=== PATIENT | male | born 1950 | race Caucasian/White ===

== ENCOUNTER 2020-10-28 13:34 | Emergency (ER) | payer MEDICARE, BC ==
[2020-10-28] MEDS ORDERED: Sodium Chloride 0.9% 10 ML Syringe FLUSH PRN (14:05)
--- NOTE | 2020-10-28 14:15 | EDM.PDOC ---
ED HPI GENERAL MEDICAL PROBLEM - General Chief Complaint: General Stated Complaint: FLU SYMPTOMS Time Seen by Provider: 10/28/20 13:45 Source of Information: Reports: Patient History Limitations: Reports: No Limitations - History of Present Illness INITIAL COMMENTS - FREE TEXT/NARRATIVE: Pt. presents to ER with complaints of fatigue, chills, weakness, cough, and mild chest congestion since last . Pt. states that he was exposed to an individual who was positive for influenza, and feels as though this is the problem. He was running a fever this weekend and states he refused to come to ER at that time. He complains of mild respirophasic chest discomfort. Denies any sore throat. No rhinorrhea. No nausea, vomiting, or diarrhea. Denies any bloody stools. Denies any skin rashes or eruptions. Denies any productive cough. No hemoptysis. Denies any dysuria, hesitancy, or urgency. Primary complaint today is of severe weakness. He states that he has been having a hard time getting up to the bathroom and required transport into the ER from the ambulance garage with a wheelchair. Family states he was very difficult to get into a vehicle to bring to ER. Pt. denies any recent travel outside of the [facility]. No recent year work. No recent hunting trips. He states that he has been spending most of his time at home. He does go out for coffee. Onset Date: 10/23/20 Location: Reports: Chest, Generalized Generalized Pain Score (Numeric/FACES): 2 - Related Data Allergies Allergy/AdvReac Type Severity Reaction Status Date / Time Dsoyvof-Bby-Bzm Reductase Allergy Other Verified 10/28/20 13:52 Inhibitor Home Meds: Home Meds Empagliflozin [Jardiance] 25 mg PO DAILY 10/28/20 [History] Metoprolol Succinate [Toprol XL 100mg] 150 mg PO DAILY 10/28/20 [History] hydroCHLOROthiazide [Hydrochlorothiazide] 12.5 mg PO DAILY 10/28/20 [History] lisinopriL [Lisinopril] 20 mg PO DAILY 10/28/20 [History] metFORMIN [Glucophage] 850 mg PO BIDMEALS 10/28/20 [History] Past Medical History Cardiovascular History: Reports: Hypertension Gastrointestinal History: Reports: PUD Endocrine/Metabolic History: Reports: Diabetes, Type II - Past Surgical History Other Male Surgeries/Procedures: nephrolithiasis Social & Family History - Tobacco Use Tobacco Use Status *Q: Never Tobacco User ED ROS GENERAL - Review of Systems Review Of Systems: See Below Constitutional: Reports: Chills, Malaise, Weakness, Fatigue, Decreased Appetite. Denies: Night Sweats, Diaphoresis, Weight Gain HEENT: Reports: No Symptoms Respiratory: Reports: Shortness of Breath, Pleuritic Chest Pain, Cough Cardiovascular: Reports: No Symptoms Endocrine: Reports: No Symptoms GI/Abdominal: Reports: No Symptoms : Reports: No Symptoms Musculoskeletal: Reports: No Symptoms Skin: Reports: No Symptoms Neurological: Reports: No Symptoms Psychiatric: Reports: No Symptoms Hematologic/Lymphatic: Reports: No Symptoms Immunologic: Reports: No Symptoms ED EXAM, GENERAL - Physical Exam Exam: See Below Exam Limited By: No Limitations General Appearance: Alert, WD/WN, No Apparent Distress Eye Exam: Bilateral Eye: EOMI, Normal Fundi, Normal Inspection, PERRL Throat/Mouth: Normal Inspection, Normal Lips, Normal Teeth, Normal Oropharynx, No Airway Compromise Head: Atraumatic, Normocephalic Neck: Normal Inspection, Supple, Non-Tender Respiratory/Chest: No Respiratory Distress, Normal Breath Sounds, No Accessory Muscle Use, Chest Non-Tender, Decreased Breath Sounds (Decreased in bases, R>L) Cardiovascular: Normal Peripheral Pulses, Regular Rate, Rhythm, No JVD, No Murmur Peripheral Pulses: 4+: Radial (L) GI/Abdominal: Soft, Non-Tender, No Distention, No Mass (Male) Exam: Deferred Rectal (Males) Exam: Deferred Back Exam: Normal Inspection, Full Range of Motion Extremities: Normal Inspection, Normal Range of Motion, Non-Tender, No Pedal Edema, Normal Capillary Refill Neurological: Alert, Oriented, CN II-XII Intact, Normal Cognition, Normal Gait, Normal Reflexes, No Motor/Sensory Deficits Psychiatric: Normal Affect, Normal Mood Skin Exam: Warm, Dry, Intact, Pallor Lymphatic: No Adenopathy #1 Interpretation Rhythm: NSR (frequent PVCs) Course - Vital Signs Last Recorded V/S: Last Vital Signs Temp 36.2 C 10/28/20 13:34 Pulse 94 10/28/20 14:45 Resp 31 H 10/28/20 14:45 BP 111/58 L 10/28/20 14:45 Pulse Ox 94 L 10/28/20 14:45 - Orders/Labs/Meds Orders: Active Orders 24 hr Category Date Time Status EKG Documentation Completion [RC] STAT Care 10/28/20 14:05 Active PE Chest [Ang Chest] [CT] Stat Exams 10/28/20 14:59 Ordered COMPREHENSIVE METABOLIC PN,CMP [CHEM] Stat Lab 10/28/20 14:18 Received CRP [C-REACTIVE PROTEIN] [CHEM] Stat Lab 10/28/20 14:18 Received CULTURE BLOOD [BC] Stat Lab 10/28/20 14:18 Received CULTURE BLOOD [BC] Stat Lab 10/28/20 14:22 Received MAGNESIUM [CHEM] Stat Lab 10/28/20 14:18 Received TROPONIN I [CHEM] Stat Lab 10/28/20 14:18 Received UA RFX LIANE AND CULT IF INDIC [URIN] Stat Lab 10/28/20 14:07 Ordered Piperacillin/Tazobactam [Zosyn] 4.5 gm Med 10/28/20 14:44 Ordered Sodium Chloride 0.9% [Normal Saline] 100 ml IV STAT Sodium Chloride 0.9% [Saline Flush] Med 10/28/20 14:05 Active 10 ml FLUSH ASDIRECTED PRN Blood Culture x2 Reflex Set [OM.PC] Stat Oth 10/28/20 14:06 Ordered Peripheral IV Insertion Adult [OM.PC] Routine Oth 10/28/20 14:06 Ordered Medication Orders Piperacillin Sod/Tazobactam (Sod 4.5 gm/ Sodium Chloride) 100 mls @ 200 mls/hr IV STAT ONE Stop: 10/28/20 15:13 Sodium Chloride (Saline Flush) 10 ml FLUSH ASDIRECTED PRN PRN Reason: Keep Vein Open Labs: Laboratory Tests 10/28/20 10/28/20 10/28/20 Range/Units 13:43 14:18 14:18 WBC 22.1 H* (4.0-10.0) x10^3/uL RBC 4.92 (4.5-6.0) x10^6/uL Hgb 15.4 (14.0-18.0) g/dL Hct 43.7 (40.0-52.0) % MCV 88.8 (78.0-93.0) fL MCH 31.3 (26.0-32.0) pg MCHC 35.2 (32.0-36.0) g/dL RDW Coeff of Poonam 14.3 (10.0-15.0) % Plt Count 255 (130-400) x10^3/uL Add Manual Diff Yes Neutrophils % (Manual) 77 (50-80) % Band Neutrophils % 11 H (0-6) % Lymphocytes % (Manual) 2 L (25-50) % Monocytes % (Manual) 8 (2-11) % Metamyelocytes % 2 H (0) % Vacuolated Monocytes Rare Platelet Estimate Adequate Polychromasia Rare PT 11.5 (9.5-12.3) SEC INR 1.1 L (2.0-3.5) APTT (25.6-32.8) SEC D-Dimer, Quantitative 2.78 H (<=0.58) mg/LFEU Sodium (136-145) mmol/L Potassium (3.5-5.1) mmol/L Chloride (98-107) mmol/L Carbon Dioxide (21-32) mmol/L Anion Gap (10-20) mmol/L BUN (7-18) mg/dL Creatinine (0.70-1.30) mg/dL Est Cr Clr Drug Dosing Estimated GFR (MDRD) Glucose (74-106) mg/dL Lactic Acid (0.4-2.0) mmol/L Calcium (8.5-10.1) mg/dL Corrected Calcium (8.5-10.1) mg/dL Magnesium (1.8-2.4) mg/dL Total Bilirubin (0.2-1.0) mg/dL AST (15-37) U/L ALT (16-63) U/L Alkaline Phosphatase (46-116) U/L Troponin I (<=0.056) ng/mL Total Protein (6.4-8.2) g/dL Albumin (3.4-5.0) g/dL Globulin Albumin/Globulin Ratio SARS CoV-2 RNA Rapid VAIBHAV Negative (NEGATIVE) 10/28/20 10/28/20 10/28/20 Range/Units 14:18 14:18 14:22 WBC (4.0-10.0) x10^3/uL RBC (4.5-6.0) x10^6/uL Hgb (14.0-18.0) g/dL Hct (40.0-52.0) % MCV (78.0-93.0) fL MCH (26.0-32.0) pg MCHC (32.0-36.0) g/dL RDW Coeff of Poonam (10.0-15.0) % Plt Count (130-400) x10^3/uL Add Manual Diff Neutrophils % (Manual) (50-80) % Band Neutrophils % (0-6) % Lymphocytes % (Manual) (25-50) % Monocytes % (Manual) (2-11) % Metamyelocytes % (0) % Vacuolated Monocytes Platelet Estimate Polychromasia PT (9.5-12.3) SEC INR (2.0-3.5) APTT 32.4 (25.6-32.8) SEC D-Dimer, Quantitative (<=0.58) mg/LFEU Sodium 130 L (136-145) mmol/L Potassium 3.1 L (3.5-5.1) mmol/L Chloride 89 L (98-107) mmol/L Carbon Dioxide 11 L (21-32) mmol/L Anion Gap 33.1 H (10-20) mmol/L BUN 42 H (7-18) mg/dL Creatinine 1.4 H (0.70-1.30) mg/dL Est Cr Clr Drug Dosing TNP Estimated GFR (MDRD) 50 Glucose 273 H (74-106) mg/dL Lactic Acid 3.2 H* (0.4-2.0) mmol/L Calcium 9.4 (8.5-10.1) mg/dL Corrected Calcium 11.00 H (8.5-10.1) mg/dL Magnesium 2.5 H (1.8-2.4) mg/dL Total Bilirubin 1.5 H (0.2-1.0) mg/dL AST 30 (15-37) U/L ALT 45 (16-63) U/L Alkaline Phosphatase 98 (46-116) U/L Troponin I < 0.017 (<=0.056) ng/mL Total Protein 7.4 (6.4-8.2) g/dL Albumin 2.0 L (3.4-5.0) g/dL Globulin 5.4 Albumin/Globulin Ratio 0.37 SARS CoV-2 RNA Rapid VAIBHAV (NEGATIVE) Meds: Medications Generic Name Dose Route Start Last Admin Trade Name Freq PRN Reason Stop Dose Admin Piperacillin Sod/Tazobactam 100 mls @ 200 mls/hr 10/28/20 14:44 Sod 4.5 gm/ Sodium Chloride IV 10/28/20 15:13 STAT ONE Sodium Chloride 10 ml 10/28/20 14:05 Saline Flush FLUSH ASDIRECTED PRN Keep Vein Open Discontinued Medications Generic Name Dose Route Start Last Admin Trade Name Freq PRN Reason Stop Dose Admin Sodium Chloride 1,000 mls @ 999 mls/hr 10/28/20 14:07 10/28/20 14:19 Normal Saline IV 10/28/20 15:07 999 mls/hr ONETIME ONE Administration Iopamidol 100 ml 10/28/20 14:51 10/28/20 15:07 Isovue-300 (61%) IVPUSH 10/28/20 14:52 100 ml ONETIME ONE Administration - Radiology Interpretation Free Text/Narrative:: Chest x-ray reveals R lung base opacity, non-specific, favor dense infiltrates. CTA of chest was obtained due to opacification on chest x-ray, elevated white count, and elevated d dimer. Large R hilar infiltrate/opacification noted of unknown etiology. No pulmonary embolism noted. - Re-Assessments/Exams Free Text/Narrative Re-Assessment/Exam: IV access established. Pt. was started on NS and was given Zosyn 4.5gm and Vancomycin 1.25gm IV. He was given a total of approx. 2.5 liters of NS since admission. Will start NS with 40KCL at 125ml/hr. Pt. blood glucose was noted to be 273mg/dl. His last blood glucose was 320mg/dl in clinic. His A1C 3 months ago was 11.6. Departure - Departure Time of Disposition: 17:26 Disposition: DC/Tfer to Acute Hospital 02 Clinical Impression: Sepsis, Pneumonia - Discharge Information Forms: ED Department Discharge Sepsis Event Note (ED) - Evaluation Sepsis Screening Result: No Definite Risk - Focused Exam Vital Signs: Vital Signs Temp Pulse Resp BP Pulse Ox 10/28/20 14:45 94 31 H 111/58 L 94 L 10/28/20 13:34 36.2 C 117 H 24 H 107/58 L 92 L - Problem List Review Problem List Initiated/Reviewed/Updated: Yes - My Orders Last 24 Hours: My Active Orders 10/28/20 14:05 EKG Documentation Completion [RC] STAT Sodium Chloride 0.9% [Saline Flush] 10 ml FLUSH ASDIRECTED PRN 10/28/20 14:06 Blood Culture x2 Reflex Set [OM.PC] Stat Peripheral IV Insertion Adult [OM.PC] Routine 10/28/20 14:07 UA RFX LIANE AND CULT IF INDIC [URIN] Stat 10/28/20 14:18 COMPREHENSIVE METABOLIC PN,CMP [CHEM] Stat CRP [C-REACTIVE PROTEIN] [CHEM] Stat CULTURE BLOOD [BC] Stat MAGNESIUM [CHEM] Stat TROPONIN I [CHEM] Stat 10/28/20 14:22 CULTURE BLOOD [BC] Stat 10/28/20 14:44 Piperacillin/Tazobactam [Zosyn] 4.5 gm Sodium Chloride 0.9% [Normal Saline] 100 ml IV STAT 10/28/20 14:59 PE Chest [Ang Chest] [CT] Stat - Assessment/Plan Last 24 Hours: My Active Orders 10/28/20 14:05 EKG Documentation Completion [RC] STAT Sodium Chloride 0.9% [Saline Flush] 10 ml FLUSH ASDIRECTED PRN 10/28/20 14:06 Blood Culture x2 Reflex Set [OM.PC] Stat Peripheral IV Insertion Adult [OM.PC] Routine 10/28/20 14:07 UA RFX LIANE AND CULT IF INDIC [URIN] Stat 10/28/20 14:18 COMPREHENSIVE METABOLIC PN,CMP [CHEM] Stat CRP [C-REACTIVE PROTEIN] [CHEM] Stat CULTURE BLOOD [BC] Stat MAGNESIUM [CHEM] Stat TROPONIN I [CHEM] Stat 10/28/20 14:22 CULTURE BLOOD [BC] Stat 10/28/20 14:44 Piperacillin/Tazobactam [Zosyn] 4.5 gm Sodium Chloride 0.9% [Normal Saline] 100 ml IV STAT 10/28/20 14:59 PE Chest [Ang Chest] [CT] Stat Assessment:: Sepsis Community acquired pneumonia Mass in R lung base. Etiology is likely infectious, given the acute development of symptoms. He will need to undergo further evaluation and likely a bronchoscopy to rule out other pathology. Plan: Pt. will be transferred to [facility]. Accepting physician is Dr. Nava, hospitalist at [facility]. Pt. is a code 1. He will be transferred to [facility] intermediate care unit and will be transported via [facility] ground ambulance. All questions were answered. Repeat lactic acid is pending. He was also able to provide a urine sample and UA results with be forwarded to [place] after this document is completed for transfer. He will be on NS with 40KCL at 150ml/hr.
[2020-10-28] MEDS: Sodium Chloride 0.9% 1,000 ML IV ONE (14:19)
--- NOTE | 2020-10-28 14:33 | CR ---
[id number] RAD/RAD Chest PA or AP 1V EXAM: FRONTAL CHEST INDICATION: COUGH, CHEST CONGESTION. COMPARISON: None. DISCUSSION: Low lung volumes and motion mildly limits this exam. A right base opacity has nonspecific imaging features and could represent consolidation, pleural fluid and/or volume loss. Mild nonspecific right hilar fullness. Chest CT with contrast may be useful for further evaluation. 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 IMPRESSION: 1. A right base opacity is somewhat nonspecific features, favor dense infiltrates. Consider contrast-enhanced chest CT for further characterization. Rodolfo Umana MD 10/28/20 [id number] Thank you for allowing us to participate in the care of your patient.
[2020-10-28 15:04] LABS: ANION GAP 33.1 mmol/L (10-20); CHLORIDE,CL 89 mmol/L (98-107); SODIUM,NA 130 mmol/L (136-145)
[2020-10-28] MEDS: Iopamidol 612 MG/ML 100 ML Bottle IVPUSH ONE (15:07)
[2020-10-28] MEDS: Piperacillin/Tazobactam 4.5 GM in Sodium Chloride 0.9% 100 ML IV ONE (15:19)
--- NOTE | 2020-10-28 15:49 | CT ---
[id number] CT/CTA Chest Exam: CTA Chest Clinical Data: ELEVATED D-DIMER ELEVATED WHITE BLOOD CELL COUNT ABNORMAL CHEST RADIOGRAPH COMPARISON: CORRELATION IS MADE WITH THE EARLIER CHEST RADIOGRAPH FINDINGS: An extensive right lower lobe infiltrate is seen. There would be concern for endobronchial lesion. This is seen on image 123, series 5 There are no pulmonary emboli. There is mild mediastinal adenopathy There may be a right hilar mass. 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
[2020-10-28] MEDS: Sodium Chloride 0.9% with KCl 1,000 ML IV SCH (17:35)
== END 2020-10-28 17:58 | disposition short-term general hospital (02) ==
LOC: VM.ED 13:34
DX: A41.9 Sepsis, unspecified organism (principal); J18.9 Pneumonia, unspecified organism; I10 Essential (primary) hypertension; E11.9 Type 2 diabetes mellitus without complications; Z79.84 Long term (current) use of oral hypoglycemic drugs; Z79.899 Other long term (current) drug therapy; Z20.828 Contact with and (suspected) exposure to other viral communicable diseases; Z88.8 Allergy status to other drugs, medicaments and biological substances
CPT/HCPCS: 36415; 71045; 71275; 80053; 81001; 83605; 83735; 84484; 85025; 85379; 85610; 85730; 86140; 87040; 87804; 87804-59; 93005; 93010; 96365; 96367; 99284; 99285-25; J2543; J3370; J3480; J7030; J7050; Q9967; U0002